=== PATIENT | male | born 1950 | race Caucasian/White ===

== ENCOUNTER 2018-10-07 07:31 | Day surgery (SDC) | payer MEDICARE ==
[~2018-10-07] VITALS: Ht 185.4 cm; Wt 117.0 kg
[~2018-10-07 07:31] MED LIST: ALLO100T PO; APIX5TAB PO; CALC625T31 PO; FENO145T37 PO; HYDR-2534 PO; SACU1TAB7 PO; SIMV40TA5 PO; SODIUM CHLORIDE 0.9% 1000ML 1,000 ML IV ONE
[2018-10-07 08:32] VITALS: BP 141/91
[2018-10-07] MEDS ORDERED: CARV25TA PO (08:44)
[2018-10-07] MEDS ORDERED: triamterene PO (08:44)
[2018-10-07] MEDS ORDERED: GLYCOPYRROLATE 0.2 MG/ML 5 ML VIAL ONE (10:44)
[2018-10-07] MEDS ORDERED: LIDOCAINE HCL 2% 20ML ONE (10:44)
[2018-10-07] MEDS ORDERED: PROPOFOL 10 MG/ML 20ML VIAL IV ONE (10:44)
[2018-10-07] MEDS ORDERED: PHENYLEPHRINE HCL 10 MG/ML 1ML VIAL IV ONE (11:00)
[2018-10-07 11:14] VITALS: BP 89/48
[2018-10-07 11:20] VITALS: BP 101/62
[2018-10-07 11:35] VITALS: BP 109/72
[2018-10-07 11:39] VITALS: BP 111/74
== END 2018-10-07 11:43 | disposition home or self-care (01) ==
LOC: ENDO 07:31 → DAH 07:31 → ENDO 11:43
PROVIDERS: ATTEND Internal Medicine
DX: Z12.11 Encounter for screening for malignant neoplasm of colon (principal); D12.2 Benign neoplasm of ascending colon; D12.0 Benign neoplasm of cecum; D12.3 Benign neoplasm of transverse colon; D12.4 Benign neoplasm of descending colon; K64.0 First degree hemorrhoids; I10 Essential (primary) hypertension; I25.10 Atherosclerotic heart disease of native coronary artery without angina pectoris; E66.9 Obesity, unspecified; I21.9 Acute myocardial infarction, unspecified; I48.91 Unspecified atrial fibrillation; C20 Malignant neoplasm of rectum; Z86.010 Personal history of colon polyps; Z85.038 Personal history of other malignant neoplasm of large intestine; Z68.42 Body mass index [BMI] 45.0-49.9, adult; I25.2 Old myocardial infarction; Z95.0 Presence of cardiac pacemaker
CPT/HCPCS: 45380; 45385; 88305; 93005; A4606; J2370; J2704; J3490 ×2; J7030

== ENCOUNTER → 2022-03-08 | Outpatient (CLI) | payer MEDICARE ==
[~2022-03-08] MED LIST changes: +CARV25TA PO; +FENO145T26 PO; -FENO145T37 PO; -HYDR-2534 PO; +HYDR50TA PO; +SIMV-46 PO; -SIMV40TA5 PO; -SODIUM CHLORIDE 0.9% 1000ML 1,000 ML IV ONE; +triamterene PO
[2022-03-08 12:50] LABS: BASOPHILS % (AUTO) 0.4 % (0.0-5.0); EOSINOPHILS % (AUTO) 3.5 % (0.0-8.0); HEMATOCRIT 37.5 % (42-54); MEAN CORPUSCULAR HEMOGLOBIN 27.5 pg (27.0-33.0); MEAN CORPUSCULAR VOLUME 85.8 fL (79-99); MONOCYTES % (AUTO) 7.7 % (3.0-13.0); NEUTROPHILS % (AUTO) 74.1 % (40.0-77.0); PLATELET COUNT (AUTO) 254 K/uL (130-400); RED BLOOD CELL COUNT(AUTO) 4.37 MIL/uL (4.50-6.20); RED CELL DISTRIBUTION WIDTH 16.3 % (11.0-15.5); WHITE BLOOD COUNT (AUTO) 9.2 K/uL (4.8-10.8)
[2022-03-08 13:00] LABS: HEMOGLOBIN A1C 6.2 % (4.0-6.0)
[2022-03-08 13:12] LABS: ALBUMIN 3.5 g/dL (3.5-5.0); BILIRUBIN,DIRECT 0.1 mg/dL (0.0-0.3); CREATININE 0.9 mg/dL (0.5-1.5); POTASSIUM 3.4 mmol/L (3.5-5.1); THYROID STIMULATING HORMONE 1.1 uIU/mL (0.36-3.74); TOTAL PROTEIN, SERUM 7.6 g/dL (6.0-8.3)
[2022-03-08 13:38] LABS: B-TYPE NATRIURETIC PEPTIDE 52 pg/mL (0-100)
== END | disposition home or self-care (01) ==
LOC: LAB 11:13
PROVIDERS: ATTEND Internal Medicine Cardiovascular Disease
DX: I20.9 Angina pectoris, unspecified (principal); I10 Essential (primary) hypertension; Z79.899 Other long term (current) drug therapy
CPT/HCPCS: 36415; 80048; 80061; 80076; 83036; 83880; 84443; 85025

== ENCOUNTER → 2022-03-21 | Outpatient (CLI) | payer MEDICARE ==
[~2022-03-21] MED LIST changes: +IOHEXOL 350 MG/ML 100ML INFUS..BTL IV ONE
== END | disposition home or self-care (01) ==
LOC: RAH 08:06
PROVIDERS: ATTEND Internal Medicine Cardiovascular Disease
DX: I20.9 Angina pectoris, unspecified (principal); M47.815 Spondylosis without myelopathy or radiculopathy, thoracolumbar region; K44.9 Diaphragmatic hernia without obstruction or gangrene
CPT/HCPCS: 75574; Q9967

== ENCOUNTER → 2025-02-19 | Outpatient (CLI) | payer MEDICARE ==
[~2025-02-19] VITALS: Ht 185.4 cm; Wt 102.1 kg
[~2025-02-19] MED LIST changes: +AMIO200T73 PO; +DAPA5TAB PO; +FERR240T6 PO; -IOHEXOL 350 MG/ML 100ML INFUS..BTL IV ONE; +POTA-202 PO; +SPIR25TA6 PO; +TAMS-55 PO
[2025-02-19 11:47] LABS: IMMATURE GRANULOCYTE ABSOLUTE 0.02 K/uL (0-1); NUCLEATED RED BLOOD CELLS 0.0 % (0.0-0.19); PLATELET COUNT (AUTO) 209 K/uL (130-400); RED BLOOD CELL COUNT(AUTO) 4.75 MIL/uL (4.50-6.20); RED CELL DISTRIBUTION WIDTH 15.1 % (11.0-15.5); WHITE BLOOD COUNT (AUTO) 8.0 K/uL (4.8-10.8)
[2025-02-19 11:55] LABS: CREATININE 0.7 mg/dL (0.5-1.3); GLOMERULAR FILTR. RATE CALC 97.0 mL/min (>90); GLUCOSE,RANDOM 103.0 mg/dL (70-105); SODIUM SERUM 144.0 mmol/L (136-145); UREA NITROGEN, BLOOD 21.0 mg/dL (7-18)
[2025-02-19 12:02] LABS: INR 1.19 (0.85-1.15)
[2025-02-19 12:12] VITALS: BP 129/80; PULSE 98; RESP 18; TEMP 97.2
[2025-02-19 12:27] LABS: APPEARANCE,URINE CLOUDY (CLEAR); GLUCOSE, URINE (UA) >=1000 mg/dL (NEGATIVE); LEUKOCYTE ESTERASE ,URINE 250 Leu/uL (NEGATIVE); NITRATE,URINE 2+ (NEGATIVE); OCCULT BLOOD,URINE SMALL (NEGATIVE)
[2025-02-19 12:30] LABS: ADD UA MICROSCOPIC YES
--- NOTE | 2025-02-19 12:40 | NUR ---
RE: IS INITIAL IS INITIAL TEACHING DONE BY RT CINTHIA DURING PREOP.
[2025-02-19 12:55] LABS: SQUAMOUS EPITHELIAL CELL,UR RARE /HPF (0-2)
--- NOTE | 2025-02-20 03:10 | EKG ---
[facility] Test Date: 2025-02-19 Test Time: 11:43:12 Pat Name: ALEXANDER GEORGE Department: [facility] Room: Gender: M Inspector Floor Sub Assembly: [id number] : 1950 Requested By: KAITLYN WORLEY Order Number: [id number] Reading MD: Poncho Adame Measurements Intervals [place] Rate: 95 P: 0 ND: 24 QRS: 41 QRSD: 182 T: 125 QT: 429 QTc: 545 Interpretive Statements Ventricular-paced complexes Compared to ECG 10/07/2018 07:15:23 Atrial fibrillation no longer present Poor R-wave progression no longer present T-wave abnormality no longer present Electronically Signed On 02-21-2025 16:05:27 CDT by Poncho Adame Please click the below link to view image of tracing.
--- NOTE | 2025-02-22 09:47 | NUR ---
report dr edmondson notified of ua/urine cx . received instructions to cancel procedure and instruct pt to follow up with pcp for treatment and then repeat ua in a week and have results available for dr edmondson to see. poss reschedule in 2-3 weeks. pt notified and voiced understanding
== END | disposition home or self-care (01) ==
LOC: DAH 10:36 → EDSTATUS 14:00
PROVIDERS: ATTEND Orthopaedic Surgery
DX: Z01.818 Encounter for other preprocedural examination (principal); M16.0 Bilateral primary osteoarthritis of hip; I48.91 Unspecified atrial fibrillation; Z95.0 Presence of cardiac pacemaker; Z90.89 Acquired absence of other organs; Z98.890 Other specified postprocedural states; Z85.048 Personal history of other malignant neoplasm of rectum, rectosigmoid junction, and anus; Z88.1 Allergy status to other antibiotic agents; Z79.01 Long term (current) use of anticoagulants; Z79.899 Other long term (current) drug therapy; Z53.8 Procedure and treatment not carried out for other reasons
CPT/HCPCS: 36415; 80048; 81001; 85025; 85610; 85730; 86850; 86900; 86901; 87086; 87186; 87641; 93005